=== PATIENT | female | born 1990 | race Caucasian/White ===

== ENCOUNTER 2017-10-27 21:29 | Emergency (ER) | payer OTHER, MEDICAID ==
[~2017-10-27] VITALS: Ht 170.2 cm; Wt 72.6 kg
[~2017-10-27 21:29] MED LIST: PRENATAL PO
[2017-10-27 22:11] LABS: URINE BILIRUBIN NEGATIVE (Negative); URINE BLOOD NEGATIVE (Negative); URINE CLARITY CLEAR; URINE COLOR YELLOW; URINE GLUCOSE-RANDOM NEGATIVE (Negative); URINE KETONES NEGATIVE (Negative); URINE LEUKOCYTES-REFLEX NEGATIVE (Negative); URINE NITRITE-REFLEX NEGATIVE (Negative); URINE PROTEIN NEGATIVE (Negative); URINE UROBILINOGEN 0.2 E.U./dl (0.2-1.0)
[2017-10-27 22:24] LABS: ABSOLUTE EOSINOPHILS 0.1 thou/uL (0.0-0.7); ABSOLUTE LYMPHOCYTES 1.9 thou/uL (0.8-5.3); ABSOLUTE MONOCYTES 0.6 thou/uL (0.0-1.2); ABSOLUTE NEUTROPHILS 6.6 thou/uL (1.6-8.1); BASOPHILS 0.5 %; EOSINOPHILS 1.2 %; HEMATOCRIT 33.7 % (37.0-47.0); HEMOGLOBIN 11.4 gm/dL (12.0-15.0); LYMPHOCYTES 20.7 %; MCHC 33.9 g/dL (28.0-37.0); MCV 91.5 fL (80.0-100.0); MONOCYTES 6.8 %; MPV 7.4 fl. (7.2-11.1); NUCLEATED RBCS 0 /100WBC; PLATELET COUNT* 279 thou/uL (150-400); POLYS 70.8 %; RBC 3.68 mil/uL (4.20-5.00); RDW-CV 13.1 % (10.5-14.5); WBC 9.3 thou/uL (4.0-11.0)
[2017-10-27 22:31] LABS: CALCIUM 8.6 mg/dL (8.5-10.1); CREATININE 0.6 mg/dL (0.6-1.3); POTASSIUM 3.5 mmol/L (3.5-5.1)
[2017-10-27 22:35] LABS: ALBUMIN 3.5 g/dL (3.4-5.0); TOTAL BILIRUBIN 0.1 mg/dL (<0.1-1.0)
[2017-10-27] MEDS ORDERED: ONDANSETRON HCL4 M2 PO (23:13)
[2017-10-27 23:20] VITALS: BP 131/60
== END 2017-10-27 23:21 | disposition home or self-care (01) ==
LOC: M.ERS 21:29
PROVIDERS: Physician Assistant
DX: O26.891 Other specified pregnancy related conditions, first trimester (principal); R10.30 Lower abdominal pain, unspecified; Z3A.08 8 weeks gestation of pregnancy

== ENCOUNTER 2019-02-09 16:32 | Emergency (ER) | payer OTHER, MEDICAID ==
[~2019-02-09] VITALS: Ht 170.2 cm; Wt 81.7 kg
[~2019-02-09 16:32] MED LIST changes: +ONDANSETRON HCL4 M2 PO
[2019-02-09] MEDS ORDERED: MUPIROCIN22 GM TOP (17:01)
[2019-02-09 17:12] VITALS: BP 148/80
== END 2019-02-09 17:13 | disposition home or self-care (01) ==
LOC: M.ERS 16:32
DX: J34.89 Other specified disorders of nose and nasal sinuses (principal)

== ENCOUNTER 2019-03-28 23:30 | Emergency (ER) | payer OTHER, MEDICAID ==
[~2019-03-28] VITALS: Ht 170.2 cm; Wt 84.4 kg
[~2019-03-28 23:30] MED LIST changes: +MUPIROCIN22 GM TOP
[2019-03-28 23:34] VITALS: BP 165/105
[2019-03-28] MEDS ORDERED: BACTRIM DS TAB1 EACH PO (23:40)
[2019-03-28] MEDS ORDERED: MUPIROCIN22 GM TOP (23:40)
== END 2019-03-28 23:46 | disposition home or self-care (01) ==
LOC: M.ERS 23:30
DX: H66.42 Suppurative otitis media, unspecified, left ear (principal)

== ENCOUNTER 2019-06-27 01:10 | Emergency (ER) | payer OTHER ==
[~2019-06-27] VITALS: Ht 170.2 cm; Wt 81.7 kg
[~2019-06-27 01:10] MED LIST changes: +BACTRIM DS TAB1 EACH PO
[2019-06-27] MEDS ORDERED: TRAMADOL 50 MG50 MG PO (02:02)
[2019-06-27 02:17] VITALS: BP 155/78
== END 2019-06-27 02:18 | disposition home or self-care (01) ==
LOC: M.ERS 01:10
DX: M77.9 Enthesopathy, unspecified (principal)

== ENCOUNTER 2019-07-08 17:46 | Emergency (ER) | payer OTHER ==
[~2019-07-08] VITALS: Ht 170.2 cm; Wt 81.7 kg
[~2019-07-08 17:46] MED LIST changes: +TRAMADOL 50 MG50 MG PO
[2019-07-08] MEDS ORDERED: IBUPROFEN 800800 M1 PO (19:36)
[2019-07-08] MEDS ORDERED: NORCO 5-325 TA1 EAC1 PO (19:36)
[2019-07-08 20:01] VITALS: BP 153/62
== END 2019-07-08 20:02 | disposition home or self-care (01) ==
LOC: M.ERS 17:46
DX: S62.395A Other fracture of fourth metacarpal bone, left hand, initial encounter for closed fracture (principal); W01.0XXA Fall on same level from slipping, tripping and stumbling without subsequent striking against object, initial encounter; Y93.89 Activity, other specified; Y92.89 Other specified places as the place of occurrence of the external cause; Y99.8 Other external cause status